=== PATIENT | male | born 1955 | race Caucasian/White ===

== ENCOUNTER 2016-09-26 12:03 | Observation (INO) | payer OTHER ==
[2016-09-26] MEDS ORDERED: SODIUM CHLORIDE 0.9% 1,000 ML IV STA ×2 (12:45)
[2016-09-26] MEDS ORDERED: HYDROmorphone 1 MG/ML 1 ML SYRINGE IVP STA (12:45)
[2016-09-26] MEDS ORDERED: ONDANSETRON 4 MG/2 ML VIAL IVP STA (12:45)
[2016-09-26 13:05] LABS: Basophils % (A) 1 %; CH 30.8; CHCM 33.1; Eosinophils # (A) 0.1 k/uL (0-0.7); Eosinophils % (A) 2 %; HCT 47.1 % (39.0-53.0); HDW 2.47; HGB 15.6 gm/dL (13.0-17.5); Luc # (Auto) 0.09; Luc % (Auto) 1; Lymphocytes # (A) 1.5 k/uL (1.0-4.8); Lymphocytes % (A) 20 %; MCH 30.9 pg (25.0-35.0); MCHC 33.1 g/dL (31.0-37.0); MCV 93.4 fL (80.0-100.0); Mean Platelet Volume 7.2; Monocytes # (A) 0.4 k/uL (0-1.0); Monocytes % (A) 6 %; Neutrophils # (A) 5.3 k/uL (1.3-7.7); Neutrophils % (A) 71 %; RBC 5.04 m/uL (4.30-5.90); RDW 13.6 % (11.5-15.5); WBC 7.4 k/uL (3.8-10.6); WBC (Perox) 7.38
[2016-09-26 13:14] LABS: ALT 73 U/L (21-72); AST 43 U/L (17-59); Alkaline Phosphatase 308 U/L (38-126); Amylase 32 U/L (30-110); Anion Gap 16 mmol/L; Blood Urea Nitrogen 10 mg/dL (9-20); Calcium 9.4 mg/dL (8.4-10.2); Carbon Dioxide 26 mmol/L (22-30); Chloride 99 mmol/L (98-107); Glucose 101 mg/dL (74-99); Non-African American GFR(MDRD) >60 (>60 ml/min/1.73 sqM); Potassium 4.4 mmol/L (3.5-5.1); Sodium 141 mmol/L (137-145); Total Bilirubin 0.7 mg/dL (0.2-1.3); Total Protein 7.1 g/dL (6.3-8.2)
[2016-09-26 13:25] LABS: Appearance,Urine Clear (Clear); Bilirubin,Urine Negative (Negative); Glucose,Urine (UA) Negative (Negative); Ketones,Urine 4+ (Negative); Leukocyte Esterase,Urine Negative (Negative); Nitrite,Urine Negative (Negative); PH, Urine 6.5 (5.0-8.0); Protein,Urine Negative (Negative); UA Billing (MACRO vs. MICRO) CHEM; Urobilinogen,Urine <2.0 mg/dL (<2.0)
--- NOTE | 2016-09-26 13:38 | XR ---
EXAMINATION TYPE: XR KUB DATE OF EXAM: 09/26/2016 1:23 PM COMPARISON: 03/12/2015 HISTORY: Abdominal pain TECHNIQUE: 2 views FINDINGS: There is no evidence of pneumoperitoneum. There is some contrast in the large bowel with fl uid levels. There is a mild levoscoliosis. There is no evidence of a mass. There are no pathologic os sifications over the kidneys. IMPRESSION: There are some large bowel air-fluid levels that could relate to diarrhea. No free air. F luid levels are new compared to old exam.
--- NOTE | 2016-09-26 14:32 | ED ---
General Adult HPI - General Chief complaint: Abdominal Pain Stated complaint: Abd Pain Time Seen by Provider: 09/26/16 12:33 Source: patient, RN notes reviewed Mode of arrival: ambulatory Limitations: no limitations - History of Present Illness Initial comments: Patient is a 60-year-old male who presents emergency room today with increased abdominal pain in the epigastric area. He does admit to history of cholecystectomy and hiatal hernia repair several months ago. Patient states that since that time he's been feeling gas-like pains in the abdomen on and off. He admits that he's had difficult time eating and appetites been decreased. He does admit to weight loss. Patient does admit that he had an outpatient CT done yesterday. States is having increased pain today and uncomfortable at home decided to come to the emergency room. Patient denies any recent fever, chills, shortness of breath, chest pain, back pain, numbness or tingling, dysuria or hematuria, constipation or diarrhea, headaches or visual changes, or any other complaints. - Related Data Home Medications Medication Instructions Recorded Confirmed Atorvastatin [Lipitor] 10 mg PO HS 02/15/15 09/26/16 Finasteride [Proscar] 5 mg PO DAILY 02/15/15 09/26/16 Cyanocobalamin [Vitamin B-12] 500 mcg PO DAILY 06/18/16 09/26/16 Pyridoxine [Vitamin B-6] 50 mg PO DAILY 06/18/16 09/26/16 Bismuth Subsalicylate 262 mg PO DAILY PRN 07/02/16 09/26/16 [Pepto-Bismol] Cholecalciferol [Vitamin D3] 400 unit PO DAILY 07/02/16 09/26/16 Magnesium Hydroxide [Milk of 400 mg PO DAILY PRN 07/02/16 09/26/16 Magnesia] Acetaminophen Tab [Tylenol] 1,000 - 1,500 tab PO Q6HR PRN 07/23/16 09/26/16 Calcium Carbonate [Tums] 500 mg PO DIRECTED PRN 09/25/16 09/26/16 Dicyclomine [Bentyl] 10 mg PO TID PRN 09/25/16 09/26/16 Omeprazole 20 mg PO DAILY 09/25/16 09/26/16 Simethicone [Gas-X] 125 mg PO DIRECTED PRN 09/25/16 09/26/16 Allergies Allergy/AdvReac Type Severity Reaction Status Date / Time egg AdvReac AVOIDS D/T Verified 09/26/16 12:10 POSITIVE ON ALLERGY TEST hydrocodone bitartrate AdvReac Nausea & Verified 09/26/16 12:10 [From Vicodin] Vomiting milk AdvReac Abdominal Verified 09/26/16 12:10 Pain Review of Systems ROS Statement: Those systems with pertinent positive or pertinent negative responses have been documented in the HPI. ROS Other: All systems not noted in ROS Statement are negative. Past Medical History Past Medical History: GERD/Reflux, Hyperlipidemia, Prostate Disorder Additional Past Medical History / Comment(s): HX OF COLON POLYPS. FREQUENT DARK STOOLS. HAS DIARRHEA, CONSTIPATION. BPH. SEVERE GERD AND HIATAL HERNIA. Scoliosis with chronic back pain History of Any Multi-Drug Resistant Organisms: None Reported Past Surgical History: Adenoidectomy, Cholecystectomy, Tonsillectomy Additional Past Surgical History / Comment(s): 07/27/16 Lap Rojas Fundoplasty. Other surgical hx: SINUS SX, COLONOSCOPY, EGD. Past Anesthesia/Blood Transfusion Reactions: Motion Sickness Past Psychological History: Depression Additional Psychological History / Comment(s): Pt lives with his spouse. He is independent. Smoking Status: Current every day smoker Past Alcohol Use History: None Reported Additional Past Alcohol Use History / Comment(s): Smokes 1 PPD x 25 yrs. Past Drug Use History: None Reported - Past Family History Father Family Medical History: Cancer Additional Family Medical History / Comment(s): Lymphoma Mother Family Medical History: Cancer Additional Family Medical History / Comment(s): Lung, Liver & Bone. General Exam - General Exam Comments Initial Comments: General: The patient is awake and alert, in no distress, and does not appear acutely ill. Eye: Pupils are equal, round and reactive to light, extra-ocular movements are intact. No nystagmus. There is normal conjunctiva bilaterally. No signs of icterus. Ears, nose, mouth and throat: There are moist mucous membranes and no oral lesions. Neck: The neck is supple, there is no tenderness or JVD. Cardiovascular: There is a regular rate and rhythm. No murmur, rub or gallop is appreciated. Respiratory: Lungs are clear to auscultation, respirations are non-labored, breath sounds are equal. No wheezes, stridor, rales, or rhonchi. Gastrointestinal: Abdomen. Normal bowel sounds. Abdomen soft on palpation. Incision sites healing well. Mild tenderness epigastric. No rebound tenderness. No guarding. No CVA tenderness. Musculoskeletal: Normal ROM, no tenderness. Strength 5/5. Sensation intact. Pulses equal bilaterally 2+. Neurological: A&O x 3. CN II-XII intact, There are no obvious motor or sensory deficits. Coordination appears grossly intact. Speech is normal. Skin: Skin is warm and dry and no rashes or lesions are noted. Psychiatric: Cooperative, appropriate mood & affect, normal judgment. Limitations: no limitations Course Vital Signs 09/26/16 09/26/16 09/26/16 12:10 13:49 14:39 Temperature 97 F L Pulse Rate 90 83 77 Respiratory 16 18 18 Rate Blood Pressure 115/82 140/73 139/75 O2 Sat by Pulse 98 98 95 Oximetry Medical Decision Making - Medical Decision Making Patient's labs been reviewed from today unremarkable. Patient's CAT scan from 09/25/2016 which was performed yesterday does show 1. 4 cm hypervascular pancreatic tail mass. Pancreatic carcinoma is high on differential. 2. Findings highly suspicious for metastatic disease with numerous hepatic lesions measuring up to 3.8 cm and additional hypervascular lesions along the right anterior abdominal wall measuring 3.9 cm involving the transverse abdominis, right rectus abdominis, and right Maya alba 3. Non-enhancement of portion of the anterior inferior spleen suspicious for splenic infarct. 4. Mild to moderate pelvic free fluid. 5. Sigmoid diverticulosis and mild circumferential bladder wall thickening. extending into the subcutaneous fat. As read by radiologist Dr. Castle. These results were discussed with the patient and family members at bedside. Patient will be admitted to hospital with consult. - Lab Data Result diagrams: 09/26/16 12:55 09/26/16 12:55 Lab Results 09/26/16 09/26/16 09/26/16 Range/Units 12:55 12:55 12:55 WBC 7.4 (3.8-10.6) k/uL RBC 5.04 (4.30-5.90) m/uL Hgb 15.6 (13.0-17.5) gm/dL Hct 47.1 (39.0-53.0) % MCV 93.4 (80.0-100.0) fL MCH 30.9 (25.0-35.0) pg MCHC 33.1 (31.0-37.0) g/dL RDW 13.6 (11.5-15.5) % Plt Count 230 (150-450) k/uL Neutrophils % 71 % Lymphocytes % 20 % Monocytes % 6 % Eosinophils % 2 % Basophils % 1 % Neutrophils # 5.3 (1.3-7.7) k/uL Lymphocytes # 1.5 (1.0-4.8) k/uL Monocytes # 0.4 (0-1.0) k/uL Eosinophils # 0.1 (0-0.7) k/uL Basophils # 0.0 (0-0.2) k/uL Sodium 141 (137-145) mmol/L Potassium 4.4 (3.5-5.1) mmol/L Chloride 99 (98-107) mmol/L Carbon Dioxide 26 (22-30) mmol/L Anion Gap 16 mmol/L BUN 10 (9-20) mg/dL Creatinine 0.70 (0.66-1.25) mg/dL Est GFR (MDRD) Af Amer >60 (>60 ml/min/1.73 sqM) Est GFR (MDRD) Non-Af >60 (>60 ml/min/1.73 sqM) Glucose 101 H (74-99) mg/dL Plasma Lactic Acid Fletcher 1.4 (0.7-2.0) mmol/L Calcium 9.4 (8.4-10.2) mg/dL Total Bilirubin 0.7 (0.2-1.3) mg/dL AST 43 (17-59) U/L ALT 73 H (21-72) U/L Alkaline Phosphatase 308 H (38-126) U/L Total Protein 7.1 (6.3-8.2) g/dL Albumin 4.2 (3.5-5.0) g/dL Amylase 32 (30-110) U/L Lipase 79 (23-300) U/L Urine Color Urine Appearance (Clear) Urine pH (5.0-8.0) Ur Specific Blanket (1.001-1.035) Urine Protein (Negative) Urine Glucose (UA) (Negative) Urine Ketones (Negative) Urine Blood (Negative) Urine Nitrate (Negative) Urine Bilirubin (Negative) Urine Urobilinogen (<2.0) mg/dL Ur Leukocyte Esterase (Negative) 09/26/16 Range/Units 13:05 WBC (3.8-10.6) k/uL RBC (4.30-5.90) m/uL Hgb (13.0-17.5) gm/dL Hct (39.0-53.0) % MCV (80.0-100.0) fL MCH (25.0-35.0) pg MCHC (31.0-37.0) g/dL RDW (11.5-15.5) % Plt Count (150-450) k/uL Neutrophils % % Lymphocytes % % Monocytes % % Eosinophils % % Basophils % % Neutrophils # (1.3-7.7) k/uL Lymphocytes # (1.0-4.8) k/uL Monocytes # (0-1.0) k/uL Eosinophils # (0-0.7) k/uL Basophils # (0-0.2) k/uL Sodium (137-145) mmol/L Potassium (3.5-5.1) mmol/L Chloride (98-107) mmol/L Carbon Dioxide (22-30) mmol/L Anion Gap mmol/L BUN (9-20) mg/dL Creatinine (0.66-1.25) mg/dL Est GFR (MDRD) Af Amer (>60 ml/min/1.73 sqM) Est GFR (MDRD) Non-Af (>60 ml/min/1.73 sqM) Glucose (74-99) mg/dL Plasma Lactic Acid Fletcher (0.7-2.0) mmol/L Calcium (8.4-10.2) mg/dL Total Bilirubin (0.2-1.3) mg/dL AST (17-59) U/L ALT (21-72) U/L Alkaline Phosphatase (38-126) U/L Total Protein (6.3-8.2) g/dL Albumin (3.5-5.0) g/dL Amylase (30-110) U/L Lipase (23-300) U/L Urine Color Yellow Urine Appearance Clear (Clear) Urine pH 6.5 (5.0-8.0) Ur Specific Blanket 1.010 (1.001-1.035) Urine Protein Negative (Negative) Urine Glucose (UA) Negative (Negative) Urine Ketones 4+ H (Negative) Urine Blood Negative (Negative) Urine Nitrate Negative (Negative) Urine Bilirubin Negative (Negative) Urine Urobilinogen <2.0 (<2.0) mg/dL Ur Leukocyte Esterase Negative (Negative) Disposition Clinical Impression: Pancreatic mass Disposition: ADMITTED IP TO THIS HOSP Condition: Stable Time of Disposition: 15:04
[2016-09-26] MEDS ORDERED: SODIUM CHLORIDE 0.9% 1,000 ML IV ONE (15:04)
[2016-09-26] MEDS ORDERED: NALOXONE 0.4 MG/ML 1 ML VIAL IV PRN (15:04)
[2016-09-26] MEDS ORDERED: BISMUTH SUBSALICYLATE 4,192 MG/240 ML BOTTLE PO PRN (15:06)
[2016-09-26] MEDS ORDERED: CALCIUM CARBONATE 500 MG CHEWABLE PO PRN (15:06)
[2016-09-26] MEDS ORDERED: SIMETHICONE 80 MG CHEWABLE PO PRN (15:06)
[2016-09-26 16:12] VITALS: BMI 24.3
[2016-09-26] MEDS: HYDROmorphone 1 MG/ML 1 ML SYRINGE IV PRN ×2 (16:29→21:44)
[2016-09-26] MEDS: ATORVASTATIN 10 MG TAB PO SCH (20:48)
[2016-09-26] MEDS: NICOTINE 21MG/24HR PATCH TRANSDERM SCH (20:48)
[2016-09-26] MEDS: ONDANSETRON 4 MG/2 ML VIAL IVP PRN (20:55)
[2016-09-27] MEDS: ONDANSETRON 4 MG/2 ML VIAL IVP PRN (05:18)
[2016-09-27] MEDS: NICOTINE 21MG/24HR PATCH TRANSDERM SCH (08:46)
[2016-09-27] MEDS: PANTOPRAZOLE 40 MG TABLET PO SCH (08:54)
[2016-09-27] MEDS: CHOLECALCIFEROL 400 UNIT TAB PO SCH (08:55)
[2016-09-27] MEDS: ACETAMINOPHEN TAB 325 MG TAB PO PRN ×3 (08:58→20:12)
--- NOTE | 2016-09-27 12:16 | P.CON ---
Consult Note - . Consult date: 09/27/16 Assessment/Plan:: Thank you very much for asking us to see Mr. rTinidad he is a 61-year-old white male who 2 months ago underwent laparoscopic cholecystectomy. His reflux symptoms worsened and he subsequently underwent Rojas fundoplication. He's been having increasing epigastric and upper abdominal discomfort. Also diminished appetite with bloating fullness gas pains. Bowels have been irregular. He states he lost about 40 pounds in the last 3-4 months in weight. He did feel a mass in the right side of the abdomen on the abdominal wall were released the last few weeks. He had a CT of his abdomen and pelvis yesterday which showed a mass in the tail of the pancreas about 4 cm in diameter suspicious for malignancy with evidence of metastatic disease now treated the liver and abdominal wall. Past history as above. Hypertension. Hyperlipidemia. ALLERGIES hydrocodone bitartrate milk egg products. Social history positive for smoking about a pack a day. Alcohol socially. systems review: As above. No cardiac or respiratory problems now. No urinary symptoms. Stools are somewhat irregular. Does have a history of colon polyps. No THREAD PULLER problems. Has some back pain. On examination patient is awake alert in no distress. Weighs about 77 kg. Colonrhydration and a good. Head and neck are normal. No lymphadenopathy. Abdomen is quite soft with mild epigastric tenderness. Has a palpable mass in the abdominal wall on the right side about 3-4 cm deep in the subcutaneous tissues. No guarding or rebound. THREAD PULLER is intact with no focal deficits. Laboratory studies are reviewed and are unremarkable. CT reviewed. Impression probably pancreatic in the tail of the pancreas with liver and intra -abdominal metastatic disease. Recommendation workup as ordered per oncology. We will probably need a percutaneous needle biopsy of the liver to determine a tissue diagnosis.
[2016-09-27] MEDS ORDERED: RX INFO: IV CONTRAST WAS GIVEN 1 EACH MISC MISCELLANE PRN (12:18)
--- NOTE | 2016-09-27 12:18 | P.CONS ---
History of Present Illness - Reason for Consult Consult date: 09/27/16 Pancreatic mass, liver and subcu masses - History of Present Illness The patient is 61-year-old gentleman, who had presented with somewhat generalized upper abdominal discomfort, and bloating after eating, since the spring. Due to progression of these symptoms, he was evaluated around 05/12 with the imaging at that time being negative. He did have an EGD with Dr. Maloney, revealing severe gastritis. He subsequently had a HIDA scan, in 06/12, which was abnormal. He therefore had a cholecystectomy, in 07/12. He initially had significant relief, but symptoms soon recurred and again progressed. He then had a Rojas fundoplication, in 08/12, again without relief of symptoms. Therefore, CT of the abdomen and pelvis was repeated by his PCP, and performed on 09/25/2016. Due to progression of his symptoms, specifically intractable pain and intermittent nausea, he came into the emergency room. CT results were reviewed at that time and showed evidence of a mass in the tail of the pancreas, as well as suspicious lesion in the liver, and the abdominal wall. He was therefore admitted for further management. He reports a weight loss of close to 50 pounds, since mid 2015. Consult was therefore placed for further evaluation and recommendations. Review of Systems Constitutional: Reports poor appetite, Reports weakness, Reports weight loss Eyes: denies blurred vision, denies pain Ears: deny: decreased hearing, ear discharge, earache, tinnitus Ears, nose, mouth and throat: Denies headache, Denies sore throat Cardiovascular: Denies chest pain, Denies shortness of breath Respiratory: Denies cough Gastrointestinal: Reports abdominal pain, Reports bloating, Reports constipation , Reports nausea Genitourinary: Reports as per HPI (No specific complaints) Musculoskeletal: Denies myalgias Integumentary: Reports lesions (Right lower abdominal wall) Neurological: Reports weakness Psychiatric: Denies anxiety, Denies depression Endocrine: Reports weight change Hematologic/Lymphatic: Reports as per HPI Past Medical History Past Medical History: GERD/Reflux, Hyperlipidemia, Prostate Disorder Additional Past Medical History / Comment(s): HX OF COLON POLYPS. FREQUENT DARK STOOLS. HAS DIARRHEA, CONSTIPATION. BPH. SEVERE GERD AND HIATAL HERNIA. Scoliosis with chronic back pain History of Any Multi-Drug Resistant Organisms: None Reported Past Surgical History: Adenoidectomy, Cholecystectomy, Tonsillectomy Additional Past Surgical History / Comment(s): 07/27/16 Lap Rojas Fundoplasty. Other surgical hx: SINUS SX, COLONOSCOPY, EGD. Past Anesthesia/Blood Transfusion Reactions: Motion Sickness Past Psychological History: Depression Additional Psychological History / Comment(s): Pt lives with his spouse. He is independent. Smoking Status: Current every day smoker Past Alcohol Use History: None Reported Additional Past Alcohol Use History / Comment(s): Smokes 1 PPD x 25 yrs. Past Drug Use History: None Reported - Past Family History Father Family Medical History: Cancer Additional Family Medical History / Comment(s): Lymphoma Mother Family Medical History: Cancer Additional Family Medical History / Comment(s): Lung, Liver & Bone. Medications and Allergies Home Medications Medication Instructions Recorded Confirmed Type Finasteride [Proscar] 5 mg PO DAILY 02/15/15 09/26/16 History Cyanocobalamin [Vitamin B-12] 500 mcg PO DAILY 06/18/16 09/26/16 History Pyridoxine [Vitamin B-6] 50 mg PO DAILY 06/18/16 09/26/16 History Bismuth Subsalicylate 262 mg PO DAILY PRN 07/02/16 09/26/16 History [Pepto-Bismol] Cholecalciferol [Vitamin D3] 400 unit PO DAILY 07/02/16 09/26/16 History Magnesium Hydroxide [Milk of 2,400 mg PO DAILY PRN 07/02/16 09/26/16 History Magnesia] Acetaminophen Tab [Tylenol] 1,000 - 1,500 tab PO Q6HR PRN 07/23/16 09/26/16 History Calcium Carbonate [Tums] 500 mg PO DIRECTED PRN 09/25/16 09/26/16 History Dicyclomine [Bentyl] 10 mg PO TID PRN 09/25/16 09/26/16 History Omeprazole 20 mg PO BID 09/25/16 09/26/16 History Simethicone [Gas-X] 125 mg PO DAILY PRN 09/25/16 09/26/16 History Atorvastatin [Lipitor] 20 mg PO Q48H 09/26/16 09/26/16 History Allergies Allergy/AdvReac Type Severity Reaction Status Date / Time egg AdvReac AVOIDS D/T Verified 09/26/16 15:30 POSITIVE ON ALLERGY TEST hydrocodone bitartrate AdvReac Nausea & Verified 09/26/16 15:30 [From Vicodin] Vomiting milk AdvReac Abdominal Verified 09/26/16 15:30 Pain Physical Exam Vitals: Vital Signs Temp Pulse Pulse Pulse Resp BP BP 09/27/16 08:00 79 86 14 09/27/16 07:00 97.9 F 79 14 123/75 09/27/16 02:47 98.1 F 89 16 152/81 09/26/16 20:00 89 86 16 09/26/16 18:44 98.7 F 68 16 139/84 09/26/16 16:01 96.8 F L 86 16 159/78 09/26/16 16:00 96.8 F L 86 15 159/78 09/26/16 15:29 97.7 F 74 16 147/88 Pulse Ox 09/27/16 08:00 09/27/16 07:00 98 09/27/16 02:47 98 09/26/16 20:00 09/26/16 18:44 100 09/26/16 16:01 99 09/26/16 16:00 99 09/26/16 15:29 97 Intake and Output 09/26/16 09/27/16 09/27/16 22:59 06:59 14:59 Intake Total 120 540 120 Balance 120 540 120 Intake: Oral 120 540 120 Other: Voiding Method Toilet Toilet # Voids 2 2 Weight 77.111 kg - Constitutional General appearance: no acute distress - EENT Eyes: EOMI, PERRLA ENT: hearing grossly normal, normal oropharynx - Neck Neck: no lymphadenopathy Thyroid: bilateral: normal size - Respiratory Respiratory: bilateral: CTA - Cardiovascular Rhythm: regular Heart sounds: normal: S1, S2 - Gastrointestinal Hard nodule , about 2-3 cm, and right lower abdominal wall. More vague nodule in midline, in the periumbilical area General gastrointestinal: normal bowel sounds, soft - Integumentary Integumentary: normal - Neurologic Neurologic: CNII-XII intact - Musculoskeletal Musculoskeletal: strength equal bilaterally - Psychiatric Psychiatric: A&O x's 3, appropriate affect, intact judgment & insight Results CBC & Chem 7: 09/26/16 12:55 09/26/16 12:55 CT scan - abdomen: report reviewed, image reviewed CT scan - pelvis: report reviewed, image reviewed Assessment and Plan (1) Pancreatic mass Narrative/Plan: The patient is presenting with symptoms as described, with imaging revealing a pancreatic mass, as well as lesion in the liver and the abdominal wall. The medications are the same were discussed with him in detail. The clinical picture is highly suspicious for a pancreatic malignancy with metastasis to the liver and abdominal wall at this time. This appears to be the cause of his progressive symptoms over the last few months. He did have a imaging a few months ago that was negative, per the patient. However this type presentation is not uncommon with pancreatic malignancies. Interventional radiology will be consulted for and imaging guided biopsy. The liver and the abdominal wall lesion should these be accessible for the same. We'll do a computed tomography scan of the chest, and check a CA 19-9. It was discussed with the patient, that assuming a metastatic malignancy is confirmed, there would likely be no scope for any surgical approach, and systemic therapy would usually be the mainstay of treatment Status: Acute
--- NOTE | 2016-09-27 14:18 | P.HPIM ---
History of Present Illness H&P Date: 09/27/16 Chief Complaint: Pancreatic mass Patient is a 61-year-old male who presented to [facility] due to abdominal pain and vomiting, computed tomography scan of the abdomen and pelvis revealed evidence of pancreatic mass, was possible metastatic disease to the liver and the abdominal wall, patient was admitted to medical floor and oncology consultation was requested for further evaluation and treatment and possible biopsy for tissue diagnosis. Patient had abdominal symptoms on and off for the last several months he was evaluated by his primary care physician Dr. Huong Cruz and by Dr. Freitas surgeon, during the last few months initial imaging was negative, patient underwent EGD he underwent HIDA scan and subsequently he had a cholecystectomy he also had evidence of the severe gastritis and underwent any symptoms fundoplication all by Dr. Bocanegra. Patient states that during his late teen in his early 20s he had about 2-3 years of excessive alcohol use of about 6-8 alcoholic drinks per day subsequently he slowed down on alcohol drinking. He does not drink alcohol at this time he still smokes 1 pack per day. He denies any other significant past medical history Past Medical History Past Medical History: GERD/Reflux, Hyperlipidemia, Prostate Disorder Additional Past Medical History / Comment(s): HX OF COLON POLYPS. FREQUENT DARK STOOLS. HAS DIARRHEA, CONSTIPATION. BPH. SEVERE GERD AND HIATAL HERNIA. Scoliosis with chronic back pain History of Any Multi-Drug Resistant Organisms: None Reported Past Surgical History: Adenoidectomy, Cholecystectomy, Tonsillectomy Additional Past Surgical History / Comment(s): 07/27/16 Lap Rojas Fundoplasty. Other surgical hx: SINUS SX, COLONOSCOPY, EGD. Past Anesthesia/Blood Transfusion Reactions: Motion Sickness Past Psychological History: Depression Additional Psychological History / Comment(s): Pt lives with his spouse. He is independent. Smoking Status: Current every day smoker Past Alcohol Use History: None Reported Additional Past Alcohol Use History / Comment(s): Smokes 1 PPD x 25 yrs. Past Drug Use History: None Reported - Past Family History Father Family Medical History: Cancer Additional Family Medical History / Comment(s): Lymphoma Mother Family Medical History: Cancer Additional Family Medical History / Comment(s): Lung, Liver & Bone. Medications and Allergies Home Medications Medication Instructions Recorded Confirmed Type Finasteride [Proscar] 5 mg PO DAILY 02/15/15 09/26/16 History Cyanocobalamin [Vitamin B-12] 500 mcg PO DAILY 06/18/16 09/26/16 History Pyridoxine [Vitamin B-6] 50 mg PO DAILY 06/18/16 09/26/16 History Bismuth Subsalicylate 262 mg PO DAILY PRN 07/02/16 09/26/16 History [Pepto-Bismol] Cholecalciferol [Vitamin D3] 400 unit PO DAILY 07/02/16 09/26/16 History Magnesium Hydroxide [Milk of 2,400 mg PO DAILY PRN 07/02/16 09/26/16 History Magnesia] Acetaminophen Tab [Tylenol] 1,000 - 1,500 tab PO Q6HR PRN 07/23/16 09/26/16 History Calcium Carbonate [Tums] 500 mg PO DIRECTED PRN 09/25/16 09/26/16 History Dicyclomine [Bentyl] 10 mg PO TID PRN 09/25/16 09/26/16 History Omeprazole 20 mg PO BID 09/25/16 09/26/16 History Simethicone [Gas-X] 125 mg PO DAILY PRN 09/25/16 09/26/16 History Atorvastatin [Lipitor] 20 mg PO Q48H 09/26/16 09/26/16 History Allergies Allergy/AdvReac Type Severity Reaction Status Date / Time egg AdvReac AVOIDS D/T Verified 09/26/16 15:30 POSITIVE ON ALLERGY TEST hydrocodone bitartrate AdvReac Nausea & Verified 09/26/16 15:30 [From Vicodin] Vomiting milk AdvReac Abdominal Verified 09/26/16 15:30 Pain Physical Exam Vitals: Vital Signs Temp Pulse Pulse Pulse Resp BP BP 09/27/16 08:00 79 86 14 09/27/16 07:00 97.9 F 79 14 123/75 09/27/16 02:47 98.1 F 89 16 152/81 09/26/16 20:00 89 86 16 09/26/16 18:44 98.7 F 68 16 139/84 09/26/16 16:01 96.8 F L 86 16 159/78 09/26/16 16:00 96.8 F L 86 15 159/78 09/26/16 15:29 97.7 F 74 16 147/88 Pulse Ox 09/27/16 08:00 09/27/16 07:00 98 09/27/16 02:47 98 09/26/16 20:00 09/26/16 18:44 100 09/26/16 16:01 99 09/26/16 16:00 99 09/26/16 15:29 97 Intake and Output 09/26/16 09/27/16 09/27/16 22:59 06:59 14:59 Intake Total 120 540 120 Balance 120 540 120 Intake: Oral 120 540 120 Other: Voiding Method Toilet Toilet # Voids 2 2 Weight 77.111 kg In general patient is alert and oriented 3 in no apparent distress HEENT head normocephalic and nontraumatic Neck is supple no JVD no goiter no lymphadenopathy Chest exam reveals a few scattered crackles no wheezing Cardiac exam reveals regular heart sounds no gallops no murmurs Abdomen is soft with mild diffuse tenderness there is a palpable mass in the right lower quadrant otherwise no abnormality Extremity exam reveals no edema no cyanosis or clubbing Results CBC & Chem 7: 09/26/16 12:55 09/26/16 12:55 Thrombosis Risk Factor Assmnt - Choose All That Apply Any of the Below Risk Factors Present?: No Other Risk Factors: Yes Each Risk Factor Represents 2 Points: Age 61-74 years Other congenital or acquired thrombophilia - If yes, enter type in comment: No Thrombosis Risk Factor Assessment Total Risk Factor Score: 2 Thrombosis Risk Factor Assessment Level: Low Risk Assessment and Plan Plan: #1 pancreatic mass was possible liver metastatic disease and abdominal wall metastatic disease Awaiting possible CT-guided biopsy #2 nausea vomiting and abdominal pain maintained on symptomatic relief Possible discharge in the next 1-2 days if symptoms aren't well controlled Patient will need systemic therapy with possible chemotherapy
--- NOTE | 2016-09-27 14:25 | CT ---
EXAMINATION TYPE: CT chest w con DATE OF EXAM: 09/27/2016 1:23 PM COMPARISON: NONE HISTORY: Pancreatic mass CT DLP: 202.40 mGycm Automated exposure control for dose reduction was used. CONTRAST: CT scan of the chest is performed with IV Contrast, patient injected with 100 ml mL of Omnipaque 300. FINDINGS: The lungs are clear of infiltrate. There is no evidence of pleural effusion or pneumothorax. Heart si ze is normal. There are no hilar masses. There is no mediastinal adenopathy. There is no pericardial effusion. There is hypertrophic spurring in the thoracic spine. IMPRESSION: Negative CT scan of the chest. Mild spondylotic changes in the thoracic spine.
[2016-09-27 15:03] VITALS: RESP 16
[2016-09-27] MEDS: ATORVASTATIN 10 MG TAB PO SCH (20:12)
[2016-09-27] MEDS ORDERED: DICYCLOMINE 10 MG CAP PO PRN (20:24)
[2016-09-27] MEDS ORDERED: MAGNESIUM HYDROXIDE 2,400 MG/10 ML CUP PO PRN (20:24)
[2016-09-27] MEDS: FINASTERIDE 5 MG TAB PO SCH (21:21)
[2016-09-28] MEDS: ACETAMINOPHEN TAB 325 MG TAB PO PRN ×3 (01:40→13:14)
[2016-09-28] MEDS: FINASTERIDE 5 MG TAB PO SCH (07:49)
[2016-09-28] MEDS: NICOTINE 21MG/24HR PATCH TRANSDERM SCH (07:49)
[2016-09-28] MEDS: PANTOPRAZOLE 40 MG TABLET PO SCH (07:49)
[2016-09-28] MEDS: CHOLECALCIFEROL 400 UNIT TAB PO SCH (07:50)
[2016-09-28 08:02] VITALS: BP 125/73; PULSE 63; TEMP 97.2
[2016-09-28 09:31] LABS: Basophils # (A) 0.1 k/uL (0-0.2); Basophils % (A) 1 %; CH 30.9; CHCM 32.7; Eosinophils # (A) 0.2 k/uL (0-0.7); Eosinophils % (A) 3 %; HCT 40.7 % (39.0-53.0); HDW 2.58; HGB 12.9 gm/dL (13.0-17.5); Luc # (Auto) 0.08; Luc % (Auto) 1; Lymphocytes # (A) 1.3 k/uL (1.0-4.8); Lymphocytes % (A) 22 %; MCH 30.1 pg (25.0-35.0); MCHC 31.7 g/dL (31.0-37.0); MCV 95.2 fL (80.0-100.0); Mean Platelet Volume 7.8; Monocytes # (A) 0.4 k/uL (0-1.0); Monocytes % (A) 6 %; Neutrophils % (A) 67 %; RBC 4.28 m/uL (4.30-5.90); RDW 13.8 % (11.5-15.5); WBC 6.1 k/uL (3.8-10.6); WBC (Perox) 6.28
[2016-09-28 09:41] LABS: ALT 66 U/L (21-72); AST 47 U/L (17-59); Alkaline Phosphatase 239 U/L (38-126); Anion Gap 7 mmol/L; Blood Urea Nitrogen 4 mg/dL (9-20); Calcium 8.6 mg/dL (8.4-10.2); Carbon Dioxide 28 mmol/L (22-30); Chloride 104 mmol/L (98-107); Glucose 122 mg/dL (74-99); Non-African American GFR(MDRD) >60 (>60 ml/min/1.73 sqM); Potassium 3.9 mmol/L (3.5-5.1); Sodium 139 mmol/L (137-145); Total Bilirubin 0.5 mg/dL (0.2-1.3); Total Protein 5.6 g/dL (6.3-8.2)
[2016-09-28 11:33] LABS: INR 1.1 (<1.1); Partial Thromboplastin Time 24.6 sec (22.0-30.0); Prothrombin Time 11.2 sec (9.0-12.0)
--- NOTE | 2016-09-28 13:16 | P.DS ---
Providers Date of admission: 09/26/16 15:04 Expected date of discharge: 09/28/16 Attending physician: Suni Jackman Consults: 09/27/16 03:33 Consult Physician Stat Consulting Provider: Emir Alonso Consult Reason/Comments: oncology, lost weight. Do you want consulting provider notified?: Yes, Notify in am Dr. Ricardo Primary care physician: Huong Cruz [facility] Course: Discharge diagnosis #1 pancreatic mass was possible liver metastatic disease and abdominal wall metastatic disease Awaiting CT-guided biopsy. CT-guided biopsy will be completed outpatient. Radiology Department will be contacting patient to set up appointment #2 nausea vomiting and abdominal pain maintained on symptomatic relief #3 history of hyperlipidemia 4. history of BPH Hospital course Patient is a 61-year-old male who presented to [facility] due to abdominal pain and vomiting, computed tomography scan of the abdomen and pelvis revealed evidence of pancreatic mass, was possible metastatic disease to the liver and the abdominal wall, patient was admitted to medical floor and oncology consultation was requested for further evaluation and treatment and possible biopsy for tissue diagnosis. Patient had abdominal symptoms on and off for the last several months he was evaluated by his primary care physician Dr. Huong Cruz and by Dr. Freitas surgeon, during the last few months initial imaging was negative, patient underwent EGD he underwent HIDA scan and subsequently he had a cholecystectomy he also had evidence of the severe gastritis and underwent any symptoms fundoplication all by Dr. Bocanegra. Patient states that during his late teen in his early 20s he had about 2-3 years of excessive alcohol use of about 6-8 alcoholic drinks per day subsequently he slowed down on alcohol drinking. He does not drink alcohol at this time he still smokes 1 pack per day. Patient evaluated by surgical service as well as oncology. At this point due to the holiday the interventional radiology service is unable to perform the CT- guided biopsy. Patient is anxious to be discharged home. Therefore we will discharge patient and he will come back as outpatient to have a CT-guided biopsy completed for tissue diagnosis of this pancreatic mass with possible liver metastatic disease and abdominal wall metastatic disease. Patient's pain is controlled. He will be given a prescription for Ultram. Also he'll be given a prescription for Ativan to help with his anxiety prior to the procedure. Dr. Jackman recommended that patient comes to the procedure 1 hour before and takes 1 mg of Ativan prior to his procedure. Patient is medically stable for discharge. Please refer to chart for any further details. Patient Condition at Discharge: Stable Plan - Discharge Summary New Discharge Prescriptions: LORazepam [Ativan] 0.5 mg PO QID PRN #5 tab PRN Reason: Anxiety traMADol HCl [Ultram] 50 mg PO Q8H PRN #90 tab PRN Reason: Pain Discharge Medication List Finasteride [Proscar] 5 mg PO DAILY 02/15/15 [History] Cyanocobalamin [Vitamin B-12] 500 mcg PO DAILY 06/18/16 [History] Pyridoxine [Vitamin B-6] 50 mg PO DAILY 06/18/16 [History] Bismuth Subsalicylate [Pepto-Bismol] 262 mg PO DAILY PRN 07/02/16 [History] Cholecalciferol [Vitamin D3] 400 unit PO DAILY 07/02/16 [History] Magnesium Hydroxide [Milk of Magnesia] 2,400 mg PO DAILY PRN 07/02/16 [History] Acetaminophen Tab [Tylenol] 1,000 - 1,500 tab PO Q6HR PRN 07/23/16 [History] Calcium Carbonate [Tums] 500 mg PO DIRECTED PRN 09/25/16 [History] Dicyclomine [Bentyl] 10 mg PO TID PRN 09/25/16 [History] Omeprazole 20 mg PO BID 09/25/16 [History] Simethicone [Gas-X] 125 mg PO DAILY PRN 09/25/16 [History] Atorvastatin [Lipitor] 20 mg PO Q48H 09/26/16 [History] LORazepam [Ativan] 0.5 mg PO QID PRN #5 tab 09/28/16 [Rx] traMADol HCl [Ultram] 50 mg PO Q8H PRN #90 tab 09/28/16 [Rx] Follow up Appointment(s)/Referral(s): Emir Alonso MD [STAFF PHYSICIAN] - 1 Week Huong Cruz DO [Primary Care Provider] - 1 Week Activity/Diet/Wound Care/Special Instructions: Set up outpatient CT guided biopsy of liver was done. Message left with the Radiology Nurse Discharge Disposition: HOME SELF-CARE
== END 2016-09-28 13:50 | disposition home or self-care (01) ==
LOC: EC 12:03 → 3SUR 15:04
PROVIDERS: ADMIT Internal Medicine; ATTEND Internal Medicine
DX: K86.9 Disease of pancreas, unspecified (principal); R63.4 Abnormal weight loss; R19.00 Intra-abdominal and pelvic swelling, mass and lump, unspecified site; R11.2 Nausea with vomiting, unspecified; R10.9 Unspecified abdominal pain; E78.5 Hyperlipidemia, unspecified; N40.0 Benign prostatic hyperplasia without lower urinary tract symptoms; K21.9 Gastro-esophageal reflux disease without esophagitis; F41.9 Anxiety disorder, unspecified; K44.9 Diaphragmatic hernia without obstruction or gangrene; K57.30 Diverticulosis of large intestine without perforation or abscess without bleeding; I10 Essential (primary) hypertension; M41.9 Scoliosis, unspecified; G89.29 Other chronic pain; M54.9 Dorsalgia, unspecified; F32.9 Major depressive disorder, single episode, unspecified; F17.200 Nicotine dependence, unspecified, uncomplicated; Z79.899 Other long term (current) drug therapy; Z80.7 Family history of other malignant neoplasms of lymphoid, hematopoietic and related tissues; Z98.84 Bariatric surgery status
CPT/HCPCS: 99285; 96374; 96375; 96361 ×2; 36415; 80053 ×2; 82150; 83605; 83690; 85025 ×2; 85610; 85730; 81003; 86301; 74000; 71260; G0378 ×3; S4990; S0138 ×2; J2405 ×2; J1170; Q9967; 96376

== ENCOUNTER 2016-10-26 06:27 | Day surgery (SDC) | payer OTHER ==
[2016-10-23 14:53] VITALS: BMI 23.6
[~2016-10-26 06:27] MED LIST: DEXAMETHASONE SOD PHOSPHATE 10 MG/ML 1 ML VIAL IV ONE; HEPARIN SODIUM,PORCINE 5,000 UNIT/ML 1 ML VIAL SQ ONE; LACTATED RINGERS 1,000 ML IV SCH; MIDAZOLAM 2 MG/2 ML VIAL IV PRN; ONDANSETRON 4 MG/2 ML VIAL IVP ONE; SCOPOLAMINE 1.5MG/72HR PATCH TRANSDERM ONE; ceFAZolin 2 GM in SODIUM CHLORIDE 0.9% 100 ML IVPB ONE; fentaNYL (PF) 50 MCG/ML 2 ML AMP IV PRN
[2016-10-26 06:53] VITALS: RESP 16; TEMP 97.8
[2016-10-26] MEDS ORDERED: LIDOCAINE 1% 20 ML VIAL (10MG/ML) FOR IV START INTRADERMA ONE (07:08)
[2016-10-26] MEDS ORDERED: IOHEXOL 180 MG/ML 1 ML ML MISCELLANE ONE ×2 (07:25)
[2016-10-26] MEDS ORDERED: HEPARIN SODIUM,PORCINE 100 UNIT/ML 5 ML VIAL IV ONE ×2 (07:25)
[2016-10-26] MEDS ORDERED: BUPIVACAIN-EPI 0.25%-1:200,000 30 ML VIAL SQ ONE ×2 (07:25)
[2016-10-26] MEDS ORDERED: fentaNYL (PF) 50 MCG/ML 2 ML AMP ONE (07:46)
[2016-10-26] MEDS ORDERED: PROPOFOL 10 MG/ML 20 ML VIAL IV ONE (07:46)
--- NOTE | 2016-10-26 07:49 | P.GSHP ---
History of Present Illness H&P Date: 10/26/16 Chief Complaint: Pancreatic cancer This a 61-year-old male who was recently diagnosed pancreas cancer. Patient presents today for Port-A-Cath insertion for IV hydration and therapy Past Medical History Past Medical History: GERD/Reflux, Hyperlipidemia, Prostate Disorder Additional Past Medical History / Comment(s): Hydration on 10-22-16 & 10-23-16 at [facility]. HX OF COLON POLYPS. FREQUENT DARK STOOLS. HAS DIARRHEA, CONSTIPATION. BPH. SEVERE GERD AND HIATAL HERNIA. Scoliosis with chronic back pain, abdominal pain, liver mass, pancreatic mass, abdominal wall mass. History of Any Multi-Drug Resistant Organisms: None Reported Past Surgical History: Adenoidectomy, Cholecystectomy, Tonsillectomy Additional Past Surgical History / Comment(s): 07/27/16 Lap Rojas Fundoplasty. Other surgical hx: SINUS SX, COLONOSCOPY, EGD. Past Anesthesia/Blood Transfusion Reactions: Motion Sickness Past Psychological History: Depression Additional Psychological History / Comment(s): Pt lives with his spouse. He is independent. Smoking Status: Current every day smoker Past Alcohol Use History: None Reported Additional Past Alcohol Use History / Comment(s): Smokes 1 PPD x 25 yrs. Past Drug Use History: None Reported - Past Family History Father Family Medical History: Cancer Additional Family Medical History / Comment(s): Lymphoma Mother Family Medical History: Cancer Additional Family Medical History / Comment(s): Lung, Liver & Bone. Medications and Allergies Home Medications Medication Instructions Recorded Confirmed Type Finasteride [Proscar] 5 mg PO DAILY 02/15/15 10/26/16 History Cyanocobalamin [Vitamin B-12] 500 mcg PO DAILY 06/18/16 10/26/16 History Pyridoxine [Vitamin B-6] 50 mg PO DAILY 06/18/16 10/26/16 History Bismuth Subsalicylate 262 mg PO DAILY PRN 07/02/16 10/26/16 History [Pepto-Bismol] Cholecalciferol [Vitamin D3] 400 unit PO DAILY 07/02/16 10/26/16 History Magnesium Hydroxide [Milk of 2,400 mg PO DAILY PRN 07/02/16 10/26/16 History Magnesia] Acetaminophen Tab [Tylenol] 1,000 - 1,500 tab PO Q6HR PRN 07/23/16 10/26/16 History Calcium Carbonate [Tums] 500 mg PO DIRECTED PRN 09/25/16 10/26/16 History Dicyclomine [Bentyl] 10 mg PO TID PRN 09/25/16 10/26/16 History Omeprazole 20 mg PO BID 09/25/16 10/26/16 History Simethicone [Gas-X] 125 mg PO DAILY PRN 09/25/16 10/26/16 History Atorvastatin [Lipitor] 20 mg PO Q48H 09/26/16 10/26/16 History Allergies Allergy/AdvReac Type Severity Reaction Status Date / Time egg AdvReac AVOIDS D/T Verified 10/23/16 14:39 POSITIVE ON ALLERGY TEST hydrocodone bitartrate AdvReac Nausea & Verified 10/23/16 14:39 [From Vicodin] Vomiting milk AdvReac Abdominal Verified 10/23/16 14:39 Pain Surgical - Exam Vital Signs Temp Pulse Resp BP Pulse Ox 97.8 F 109 H 16 137/94 98 10/26/16 06:53 10/26/16 06:53 10/26/16 06:53 10/26/16 06:53 10/26/16 06:53 - General well developed, no distress - Eyes PERRL - ENT normal pinna - Neck no masses - Respiratory normal expansion - Cardiovascular Rhythm: regular - Abdomen Mildly tender throughout Abdomen: soft Assessment and Plan Plan: Pancreatic cancer. We'll perform Port-A-Cath insertion
--- NOTE | 2016-10-26 08:34 | P.OP ---
Date of Procedure: 10/26/16 Preoperative Diagnosis: Pancreas cancer Postoperative Diagnosis: Pancreas cancer Procedure(s) Performed: Insertion of right subclavian Port-A-Cath Anesthesia: MAC Surgeon: Christiano Maloney Estimated Blood Loss (ml): 5 Pathology: none sent Condition: stable Disposition: PACU Description of Procedure: PROCEDURE: The patient was placed on the operating table in the supine position. She received MAC anesthetic. The [RIGHT] chest was prepped and draped in the usual sterile fashion. The skin underneath the right clavicle was anesthetized with 1% Xylocaine and using Seldinger technique, the right subclavian vein was cannulized. The wire was placed through the needle and positioned under fluoroscopy. Next, the needle was removed and the port site was anesthetized with 1% Xylocaine. Skin was incised with #15 blade and port pocket was made using blunt and sharp dissection. Following this the catheter was attached to the sport and the port was flushed. The port was positioned into the pocket site and was secured with 3-0 Vicryl suture. The catheter was then brought out through the wire site and then the dilator sheath was placed over the wire and the dilator and the wire were removed. The catheter was placed through the sheath and the sheath was removed. The port was flushed with hep-lock solution. Skin was closed with interrupted 3-0 Vicryl sutures. Steri-Strips were applied. The patient tolerated the procedure well. The patient was sent to recovery room for chest x-ray after the procedure. n
--- NOTE | 2016-10-26 08:52 | XR ---
EXAMINATION TYPE: XR chest 1V DATE OF EXAM: 10/26/2016 8:46 AM COMPARISON: None HISTORY: Line placement TECHNIQUE: Single frontal view of the chest is obtained. FINDINGS: There is no focal air space opacity, pleural effusion, or pneumothorax seen. The cardiac silhouette size is within normal limits. The osseous structures are intact. A Port-A-Cath is seen with the tip overlying the SVC. No sizable pneumothorax. IMPRESSION: 1. Port-A-Cath appears in good position with no postprocedural complication.
[2016-10-26 09:05] VITALS: BP 148/89; PULSE 88
--- NOTE | 2016-10-26 10:26 | FL ---
EXAMINATION TYPE: FL guided central line placement DATE OF EXAM: 10/26/2016 8:39 AM FLUOROSCOPY Fluoroscopy time of 27 seconds was used during right-sided Port-A-Cath placement. 1 image/s document /s the procedure.
== END 2016-10-26 09:20 | disposition home or self-care (01) ==
LOC: OR 06:27
PROVIDERS: ATTEND Surgery
DX: Z45.2 Encounter for adjustment and management of vascular access device (principal); C25.9 Malignant neoplasm of pancreas, unspecified; K21.9 Gastro-esophageal reflux disease without esophagitis; E78.5 Hyperlipidemia, unspecified; N40.0 Benign prostatic hyperplasia without lower urinary tract symptoms; F32.9 Major depressive disorder, single episode, unspecified; F41.9 Anxiety disorder, unspecified; F17.200 Nicotine dependence, unspecified, uncomplicated; Z79.899 Other long term (current) drug therapy
CPT/HCPCS: 77001; 71010; 36561; C1788; J1644; J1642; J1100; Q9965; J0690; J2405; J3010; J2704; 99152; 99153

== ENCOUNTER → 2016-10-30 | Outpatient (CLI) | payer OTHER ==
--- NOTE | 2016-10-30 19:18 | US ---
EXAMINATION TYPE: US VENOUS DOPPLER DUPLEX LEFT LOWER EXTREMITY DATE OF EXAM: 10/30/2016 6:32 PM COMPARISON: No previous CLINICAL HISTORY: R22.42 Swelling in left lower leg. Left calf pain x 5 days SIDE PERFORMED: LEFT LOWER EXTREMITY VESSELS IMAGED: External Iliac Vein (EIV) Common Femoral Vein Deep Femoral Vein Greater Saphenous Vein * Femoral Vein Popliteal Vein Small Saphenous Vein * Proximal Calf Veins (* superficial vessels) IMPRESSION: 1. LEFT LOWER EXTREMITY NEGATIVE FOR DEEP VENOUS THROMBOSIS. 2. However nonocclusive thrombus seen within the superficial small saphenous vein.
== END | disposition home or self-care (01) ==
LOC: RADUSMAIN 17:45
PROVIDERS: ATTEND Internal Medicine Hematology & Oncology
DX: I82.812 Embolism and thrombosis of superficial veins of left lower extremity (principal)

== ENCOUNTER → 2016-12-30 | Outpatient (CLI) | payer OTHER ==
--- NOTE | 2016-12-30 11:26 | XR ---
EXAMINATION TYPE: XR chest 2V, bilateral rib series DATE OF EXAM: 12/30/2016 10:55 AM COMPARISON: 10/26/2016 HISTORY: 61 year-old male history of pancreatic cancer with cough and congestion TECHNIQUE: PA and lateral views FINDINGS: Chest: Right anterior chest wall injection port with subclavian access and catheter tip at about the mid to lower SVC. Heart is normal size. Aorta and pulmonary vasculature are within normal limits. Mild inter stitial prominence is unchanged and likely chronic senescent change. No consolidation or pleural effu moni. RIBS: No displaced rib fracture. IMPRESSION: 1. Chronic changes without acute cardiopulmonary process. 2. No displaced rib fracture seen on either side.
== END | disposition home or self-care (01) ==
LOC: RADXRMAIN 10:36
PROVIDERS: ATTEND Internal Medicine Hematology & Oncology
DX: C25.2 Malignant neoplasm of tail of pancreas (principal); E78.5 Hyperlipidemia, unspecified; M10.9 Gout, unspecified; Z71.89 Other specified counseling
CPT/HCPCS: 71020; 71110

== ENCOUNTER → 2017-01-27 | Outpatient (CLI) | payer OTHER ==
[2017-01-27 14:31] LABS: Blood Urea Nitrogen 6 mg/dL (9-20); Non-African American GFR(MDRD) >60 (>60 ml/min/1.73 sqM)
--- NOTE | 2017-01-27 15:26 | CT ---
EXAMINATION TYPE: CT abdomen pelvis w con DATE OF EXAM: 01/27/2017 3:10 PM COMPARISON: 09/25/2016 HISTORY: pancreatic CA CT DLP: 465.6 mGycm CONTRAST: CT scan of the abdomen and pelvis is performed with Oral Contrast and with IV Contrast, patient injec venkata with 100 mL of Omnipaque 300. FINDINGS: LUNG BASES-: 1.3 cm nodule left posterior sulcus left lung base. Metastatic lesion is difficult to ex clude. No infiltrate. LIVER/GB: No calcified gallstones. Numerous low attenuating lesions of the liver are suspicious for metastatic disease. Overall no significant change is appreciated. The gallbladder is surgically abse nt. Biliary tree is of normal caliber. PANCREAS: Pancreatic tail mass compatible with the patient's history of pancreatic carcinoma again se en and currently measures 3.2 cm versus 4 cm previously. Again noted is extension into the splenic hi lum. SPLEEN: Splenic infarcts again noted involving superior and inferior anterior lip of the spleen as we ll as the posterior margin of the spleen which appears to be new. ADRENALS: No nodule. No thickening. KIDNEYS/BLADDER: No hydronephrosis. No nephrolithiasis. No disctinct renal mass. Urinary bladder g rossly unremarkable. BOWEL: Normal appendix. Normal bowel caliber. No inflammation. GENITAL ORGANS: No gross abnormality. LYMPH NODES: No greater than 1cm abdominal or pelvic lymph nodes are appreciated. AORTA: No significant abnormality. OSSEOUS STRUCTURES: Severe degenerative change lower lumbar spine. OTHER: Small amount of ascites within the pelvis. Right rectus musculature lesion is again seen and m easures 2.1 cm versus 1.5 cm previously. Additional lesion at the right linea alba currently measures 2 cm x 3.2 cm versus 3.8 x 1.9 cm. Suspect metastatic lesions. IMPRESSION: 1. Persistent but slightly smaller pancreatic tail mass which extends into the splenic hilum. 2. Splenic infarcts have progressed. 3. Stable metastatic disease to the liver and the right rectus abdominis musculature. 4. Left basilar pulmonary nodule. 5. Free fluid within the pelvis are again noted.
== END | disposition home or self-care (01) ==
LOC: RADPROMAIN 13:45
PROVIDERS: ATTEND Internal Medicine Hematology & Oncology
DX: C25.2 Malignant neoplasm of tail of pancreas (principal); C78.7 Secondary malignant neoplasm of liver and intrahepatic bile duct; C79.89 Secondary malignant neoplasm of other specified sites; D73.5 Infarction of spleen
CPT/HCPCS: 82565; 84520; 74177; Q9967

== ENCOUNTER → 2017-05-05 | Outpatient (CLI) | payer OTHER ==
--- NOTE | 2017-05-05 13:21 | XR ---
EXAMINATION TYPE: XR chest 2V DATE OF EXAM: 05/05/2017 COMPARISON: 12/30/2016 HISTORY: 61-year-old male carcinoma of the tail of the pancreas with chest pain TECHNIQUE: Frontal and lateral views FINDINGS: Right anterior chest wall injection port with subclavian approach catheter tip seen at least to the l evel of the mid to lower SVC. The cardiomediastinal silhouette, aorta, and pulmonary vasculature are within normal limits. There is a trace left pleural effusion with some patchy adjacent opacity. IMPRESSION: Trace left pleural effusion with adjacent atelectasis and/or consolidation.
== END | disposition home or self-care (01) ==
LOC: RADXRMAIN 13:06
PROVIDERS: ATTEND Internal Medicine Hematology & Oncology
DX: J90 Pleural effusion, not elsewhere classified (principal); C25.2 Malignant neoplasm of tail of pancreas; M10.9 Gout, unspecified; E78.5 Hyperlipidemia, unspecified; Z71.89 Other specified counseling
CPT/HCPCS: 71020

== ENCOUNTER → 2017-05-19 | Outpatient (CLI) | payer OTHER ==
[2017-05-19 15:09] LABS: Blood Urea Nitrogen 6 mg/dL (9-20); Non-African American GFR(MDRD) >60 (>60 ml/min/1.73 sqM)
--- NOTE | 2017-05-19 17:10 | CT ---
EXAMINATION TYPE: CT abdomen pelvis w con DATE OF EXAM: 05/19/2017 COMPARISON: Pancreatic cancer, C 25.2 HISTORY: Patient has no complaints at time of study. Follow up study for known pancreatic cancer. CT DLP: 514.6 mGycm Automated exposure control for dose reduction was used. TECHNIQUE: Helical acquisition of images from the lung bases through the pelvis have been completed. CONTRAST: Performed with Oral Contrast and with IV Contrast, patient injected with 100 mL of Omnipaque 300. FINDINGS: LUNG BASES: There are small pleural effusions which have developed in the interval. AORTA: No significant abnormality is appreciated. LIVER/GB: Liver shows heterogeneous density similar to prior exam. Dilated biliary ducts are present especially in the left lobe. Focal low attenuation present at the posterior aspect of the right lobe of the liver at the level of the dome shows a measurement of approximately 17 mm, lesion at the level of the dome centrally is not seen definitively. Posterior right lobe towards the dome shows a hypode nsity measuring 15 mm which is not as well circumscribed are delineated on previous exam. Contour abn ormality at the posterior aspect of the right lobe is again noted. PANCREAS: Tail of pancreas mass is somewhat poorly defined but measures approximately 2.8 cm similar to previous. SPLEEN: Prior splenic infarct changes are again noted. ADRENALS: No significant abnormality is seen. KIDNEYS: No significant abnormality is seen. REPRODUCTIVE ORGANS: No significant abnormality is seen BOWEL: No significant abnormality is seen. FREE AIR: No Free Air visible. ASCITES: Some free fluid is present in the pelvis PELVIC ADENOPATHY: None visualized. RETROPERITONEAL ADENOPATHY: No Retroperitoneal Adenopathy visible. URINARY BLADDER: Bladder shows a thickened wall similar to prior exam. OSSEOUS STRUCTURES: Stable There are changes of anasarca as on prior exam. Soft tissue mass along the anterior abdominal wall fields bcutaneous fat shows a similar appearance but has decreased from 2.1 cm to 18 mm. The rectus lesion i s not as well-defined. IMPRESSION: EVIDENCE OF METASTATIC DISEASE AGAIN NOTED. Findings suggest some response to therapy. They may be mi xed response, liver lesions are not well correlated due to tissue contrast limitation.
== END | disposition home or self-care (01) ==
LOC: RADPROMAIN 14:15
PROVIDERS: ATTEND Internal Medicine Hematology & Oncology
DX: C79.9 Secondary malignant neoplasm of unspecified site (principal); C25.2 Malignant neoplasm of tail of pancreas; Z88.5 Allergy status to narcotic agent
CPT/HCPCS: 82565; 84520; 74177; Q9967; J1642

== ENCOUNTER → 2017-07-02 | Outpatient (CLI) | payer OTHER ==
--- NOTE | 2017-07-02 13:08 | CT ---
EXAMINATION TYPE: CT abdomen pelvis w con DATE OF EXAM: 07/02/2017 COMPARISON: CT abdomen pelvis May 19, 2017 and older studies HISTORY: Patient complains of RUQ pain and increased CA blood markers. Patient has a history of panc reatic CA with mets. Currently on chemotherapy treatment. CT DLP: 1170 mGycm, Automated Exposure Control for Dose Reduction was Utilized. CONTRAST: CT scan of the abdomen and pelvis is performed with oral and with IV Contrast, patient injected with 100 mL of Omnipaque 300. FINDINGS: LUNG BASES: There are persistent tiny bilateral pleural effusions improved from prior. LIVER/GB: There is redemonstration of heterogeneous appearing liver. There is redemonstration of mode rate left-sided intrahepatic ductal dilatation fairly stable from prior study. There is increasing le ft lobe atrophy noted over last several studies. Hypodense lesion posterior right hepatic dome measures 2.1 cm on long axis current study axial image 4 versus 1.5 cm on prior study image 5. There is new irregular hypodense lesion medial segment left hepatic lobe inferiorly measuring 2.9 cm on long axis on axial image 13. There is new 1.8 cm posterior right hepatic lobe irregular hypodense lesion on axial image 11. There are additional more vague areas of subcentimeter hypodensity worrisom e for new metastatic deposits. Central 1.0 cm low dense lesion right hepatic lobe on axial image 11 favor simple cyst as is lower de nsity than the suspicious lesions and unchanged from September 25, 2016 CT PANCREAS: Irregular heterogeneous soft tissue mass at pancreatic tail is difficult to accurately elidia ure measuring roughly 3.4 x 1.5 cm on current study series 3 image 19 not significantly changed from most recent study, not significantly improved from most recent study but improved from older exams wh ere was larger and more defined. Lesion may be altering splenic blood flow mechanics accounting for s plenic findings. SPLEEN: There is persistent areas of nonenhancement throughout the spleen with some progression in se verity over prior studies suggesting worsening infarction or ischemia. Splenic size is stable and fel t within normal limits. ADRENALS: No significant abnormality is seen. KIDNEYS: There is persistent mild to moderate wall thickening most prominent anteriorly in the bladde r. BOWEL: Sigmoid colonic diverticulosis is redemonstrated. Oral contrast reaches level of the hepatic f lexure. There is no suspicious small or large bowel dilatation. PROSTATE/SEMINAL VESICLES: No gross abnormality seen. LYMPH NODES: No greater than 1cm abdominal or pelvic lymph nodes are appreciated. There is stable pr ominent but subcentimeter right groin lymph node on axial image 63. OSSEOUS STRUCTURES: Underlying levoconvex scoliosis is redemonstrated. There is multilevel moderate t o severe spurring and disc space narrowing throughout the thoracolumbar spine. There is multilevel fa cet arthropathy throughout the lumbar spine. Most prominent spinal canal stenosis is L4-L5 level on a xial image 42. OTHER: There is slightly more prominent moderate pelvic fluid or ascites the midline on axial image 6 8. Patient has very little intra-abdominal fat making evaluation somewhat suboptimal. There is fairly moderate diffuse soft tissue anasarca redemonstrated. Irregular right mid abdominal wall lesion possibly invading the rectus on axial image 38 is difficult to accurately measure measuring roughly 2.7 x 1.0 cm is stable or slightly less prominent versus fatimah or exams. IMPRESSION: 1. Findings are consistent with disease progression as there are new and enlarging liver lesions pres ent which correlates with patient's history of rising tumor markers.
== END | disposition home or self-care (01) ==
LOC: RADPROMAIN 10:45
PROVIDERS: ATTEND Internal Medicine Hematology & Oncology
DX: C25.2 Malignant neoplasm of tail of pancreas (principal)
CPT/HCPCS: 74177; Q9967; J1642